=== PATIENT | female | born 1965 | race Caucasian/White ===

== ENCOUNTER 2017-08-29 11:23 | Outpatient (CLI) | payer BC ==
--- NOTE | 2017-08-29 12:04 | RAD ---
LEFT SHOULDER 3 VIEWS: Date: 08/29/17 HISTORY: Shoulder pain, rotator cuff impingement. FINDINGS: Acromion appears slightly laterally downsloping. There is minimal AC joint arthritic change. Glenohum eral joint space appears unremarkable. IMPRESSION: Essentially unremarkable left shoulder. POS: [facility]
--- NOTE | 2017-08-29 12:08 | RAD ---
CERVICAL SPINE AP AND LATERAL: Date: 08/29/17 HISTORY: Neck pain. COMPARISON: None. FINDINGS: No acute fracture. No malalignment. No listhesis. Open-mouth odontoid view is normal. Paraspinal soft tissues are unremarkable. IMPRESSION: Normal examination. POS: [facility]
== END 2017-08-29 11:24 | disposition home or self-care (01) ==
LOC: RAD 11:23
PROVIDERS: ATTEND Family Medicine
DX: M54.2 Cervicalgia (principal); M75.42 Impingement syndrome of left shoulder
CPT/HCPCS: 72040

== ENCOUNTER 2019-05-01 01:12 | Emergency (ER) | payer BC, SELFPAY ==
[2019-05-01] MEDS ORDERED: Lidocaine 1% (PF) 30 ML VIAL ONE (01:38)
[2019-05-01] MEDS ORDERED: Adacel (T-DAP) 0.5 ML SYRINGE ONE (02:19)
--- NOTE | 2019-05-01 07:59 | RAD ---
EXAM: Right small digit radiographs 3 views PROVIDED CLINICAL HISTORY: Pain FINDINGS: There is no evidence for fracture or other acute osseous abnormality. Alignment appears anatomic. Princess nt spaces appear preserved. IMPRESSION: No evidence for an acute osseous abnormality. If there is persistent clinical concern, conservative m anagement and follow-up imaging advised.
== END 2019-05-01 02:52 | disposition home or self-care (01) ==
LOC: ERS 01:12
DX: S61.216A Laceration without foreign body of right little finger without damage to nail, initial encounter (principal); T14.8XXA Other injury of unspecified body region, initial encounter; F17.210 Nicotine dependence, cigarettes, uncomplicated; W26.8XXA Contact with other sharp object(s), not elsewhere classified, initial encounter
CPT/HCPCS: 12002; 90471; 90715; J2001

== ENCOUNTER 2022-06-21 07:50 | Emergency (ER) | payer BC, SELFPAY ==
[2022-06-21 08:44] LABS: #Basophils 0.1 thou/uL (0.0-0.2); #Eosinphils 0.2 thou/uL (0.0-0.7); #Lymphocytes 1.4 thou/uL (1.20-3.40); #Monocytes 0.3 thou/uL (0.11-0.59); #Neutrophils 3.1 thou/uL (1.40-6.50); %Basophils 1.3 % (0.0-1.0); %Eosinophils 3.8 % (0.0-10.0); %Lymphocytes 27.9 % (21.0-51.0); %Monocytes 6.5 % (0.0-10.0); %Neutrophils 60.5 % (42.0-75.0); Hemoglobin 14.6 g/dL (12.0-16.0); Mean Corpuscular HGB CONC 32.2 g/dL (32.0-36.0); Mean Corpuscular Hemoglobin 32.1 pg (27.0-31.0); Mean Corpuscular Volume 99.4 fL (78.0-98.0); Mean Platelet Volume 8.1 fL (7.4-10.4); Platelet Count 267 thou/uL (130-400); RBC Distribution Width 11.9 % (11.5-14.5); Red Blood Cell (RBC) Count 4.55 mill/uL (4.20-5.40); White Blood Cell (WBC) Count 5.1 thou/uL (4.8-10.8)
[2022-06-21] MEDS ORDERED: cefTRIAXone\\ROCEPHIN 2 GM VIAL ONE (08:54)
[2022-06-21] MEDS ORDERED: Iopamidol-370 76% 500 ML 1 ML ONE (09:08)
[2022-06-21 09:18] LABS: Bilirubin Negative (Negative); Blood, Urine Negative (Negative); Clarity Clear (Clear); Glucose, Urine (Dipstick) Normal (Negative); Ketone, Urine Negative (Negative); Leukocyte Negative Leu/uL (Negative); Nitrite Negative (Negative); Protein, Urine (Dipstick) Negative (Neg-Trace); Specific Gravity, Urine 1.012 (1.002-1.036); Urobilinogen Normal mg/dL (Less than 2)
[2022-06-21 09:19] LABS: Pregnancy Test - Urine (BHCG) Negative (Negative); Pregu Control Background? CLEAR/WHITE (CLR/WHITE); Pregu Control Bar Appear? YES (CONTROL BAR); Specific Gravity 1.012 (1.002-1.036)
[2022-06-21 09:27] LABS: ALT (SGPT) 33 U/L (8-55); AST (SGOT) 29 U/L (5-34); Albumin 4.4 g/dL (3.5-5.0); Alkaline Phosphatase 64 U/L (40-110); Anion Gap 13 mmol/L (10-20); BUN (Urea Nitrogen) 14 mg/dL (9.8-20.1); Bilirubin, Total 0.6 mg/dL (0.2-1.2); Calc. Creatinine Clearance 0 mL/min (70-130); Calcium 9.5 mg/dL (7.8-10.44); Carbon Dioxide 26 mmol/L (22-29); Chloride 104 mmol/L (98-107); Estimated GFR 93; Globulin 3.1 g/dL (2.4-3.5); Glucose 113 mg/dL (70-105); Potassium 4.5 mmol/L (3.5-5.1); Protein, Total 7.5 g/dL (6.0-8.3); Sodium 138 mmol/L (136-145)
== END 2022-06-21 11:15 | disposition home or self-care (01) ==
LOC: ERS 07:50
DX: I10 Essential (primary) hypertension (principal); M54.50 Low back pain, unspecified; F17.210 Nicotine dependence, cigarettes, uncomplicated
CPT/HCPCS: 36415; 71275; 74174; 80053; 81003; 81025; 85025; 87086; 96374; J0696; Q9967

== ENCOUNTER 2022-08-29 05:53 | Observation (INO) | payer SELFPAY ==
[2022-08-29] MEDS ORDERED: Aspirin Chewable 81 MG TAB ONE ×3 (06:13→16:10)
[2022-08-29] MEDS ORDERED: LORazepam 2 MG/ML SYR.(CARPUJECT) ONE (06:38)
[2022-08-29 06:45] LABS: #Eosinphils 0.3 thou/uL (0.0-0.7); #Lymphocytes 1.6 thou/uL (1.20-3.40); #Monocytes 0.3 thou/uL (0.11-0.59); #Neutrophils 2.3 thou/uL (1.40-6.50); %Basophils 0.9 % (0.0-1.0); %Eosinophils 6.1 % (0.0-10.0); %Lymphocytes 35.9 % (21.0-51.0); %Monocytes 5.5 % (0.0-10.0); %Neutrophils 51.6 % (42.0-75.0); Hemoglobin 13.8 g/dL (12.0-16.0); Mean Corpuscular HGB CONC 33.4 g/dL (32.0-36.0); Mean Corpuscular Hemoglobin 33.1 pg (27.0-31.0); Mean Corpuscular Volume 99.1 fl (78.0-98.0); Mean Platelet Volume 7.9 fL (7.4-10.4); Platelet Count 263 10x3/uL (130-400); RBC Distribution Width 11.9 % (11.5-14.5); Red Blood Cell (RBC) Count 4.17 mill/uL (4.20-5.40); White Blood Cell (WBC) Count 4.5 10x3/uL (4.8-10.8)
[2022-08-29 07:05] LABS: ALT (SGPT) 24 U/L (8-55); AST (SGOT) 22 U/L (5-34); Albumin 4.5 g/dL (3.5-5.0); Alkaline Phosphatase 62 U/L (40-110); Anion Gap 14 mmol/L (10-20); BUN (Urea Nitrogen) 14 mg/dL (9.8-20.1); Bilirubin, Total 0.2 mg/dL (0.2-1.2); Calc. Creatinine Clearance 0 mL/min (70-130); Calcium 9.3 mg/dL (7.8-10.44); Carbon Dioxide 22 mmol/L (22-29); Chloride 107 mmol/L (98-107); Estimated GFR 103; Globulin 3.2 g/dL (2.4-3.5); Glucose 117 mg/dL (70-105); Potassium 3.9 mmol/L (3.5-5.1); Protein, Total 7.7 g/dL (6.0-8.3); Sodium 139 mmol/L (136-145)
[2022-08-29] MEDS ORDERED: ADENOSINE 60 MG/20 ML VIAL ONE (08:17)
[2022-08-29] MEDS ORDERED: Lorazepam 2 MG/ML VIAL IM PRN (09:09)
[2022-08-29] MEDS ORDERED: Zolpidem Tartrate 5 MG TAB PO PRN (09:09)
[2022-08-29] MEDS ORDERED: Acetaminophen 325 MG TAB PO PRN (09:09)
[2022-08-29] MEDS ORDERED: Guaifenesin DM 100-10/5 ML UDCUP PO PRN (09:09)
[2022-08-29] MEDS ORDERED: Ondansetron PF 4 MG/2 ML Vial IVP PRN (09:09)
[2022-08-29] MEDS ORDERED: Lorazepam 1 MG TAB PO PRN (09:09)
[2022-08-29] MEDS ORDERED: Ondansetron ODT 4 MG TAB PO PRN (09:09)
[2022-08-29] MEDS ORDERED: Electrolyte Replacement Protocol FS SCH (09:15)
[2022-08-29 09:35] LABS: #Eosinphils 0.2 thou/uL (0.0-0.7); #Lymphocytes 1.5 thou/uL (1.20-3.40); #Monocytes 0.3 thou/uL (0.11-0.59); #Neutrophils 3.6 thou/uL (1.40-6.50); %Basophils 0.6 % (0.0-1.0); %Eosinophils 4.2 % (0.0-10.0); %Lymphocytes 25.9 % (21.0-51.0); %Neutrophils 63.3 % (42.0-75.0); Hemoglobin 12.8 g/dL (12.0-16.0); Mean Corpuscular HGB CONC 32.1 g/dL (32.0-36.0); Mean Corpuscular Hemoglobin 32.1 pg (27.0-31.0); Mean Platelet Volume 8.2 fL (7.4-10.4); Platelet Count 255 10x3/uL (130-400); Red Blood Cell (RBC) Count 3.98 mill/uL (4.20-5.40); White Blood Cell (WBC) Count 5.6 10x3/uL (4.8-10.8)
[2022-08-29 09:51] LABS: Cardiac Risk 3.5 (Less than 4.5); Cholesterol 193 mg/dl (< 200 Desired); HDL Cholesterol 55 mg/dL (>60 Neg Risk); LDL Cholesterol, Calculated 122 mg/dL; Magnesium 1.8 mg/dL (1.6-2.6); Triglycerides 78 mg/dL (Less than 150); Troponin I Less than 0.010 ng/mL (< 0.028)
[2022-08-29 09:57] LABS: Phosphorus 3.2 mg/dL (2.3-4.7)
[2022-08-29] MEDS ORDERED: Lorazepam 1 MG TAB PO SCH (10:00)
[2022-08-29] MEDS ORDERED: Thiamine HCl 200 MG/2 ML VIAL SLOW IVP SCH (10:00)
[2022-08-29 11:27] VITALS: BMI 35.4
[2022-08-29 13:22] LABS: Syphilis Antibody Nonreactive (Nonreactive); Syphilis Antibody Index 0.04 S/CO (<1.00 Non-Reactive)
[2022-08-29] MEDS ORDERED: Magnesium 2 GM/50 ML(in water) 2 GM in Premix Bag 1 BAG IVPB SCH (13:45)
[2022-08-29 16:18] VITALS: BP 163/76; TEMP 98
[2022-08-29 16:32] LABS: Amphetamine Not Detected (NotDetected); Barbiturates Screen Not Detected (NotDetected); Benzodiazepine Screen Detected (NotDetected); Cocaine Metabolite Screen Not Detected (NotDetected); Methadone Not Detected (NotDetected); Methamphetamine Not Detected (NotDetected); Opiate Screen Not Detected (NotDetected); Oxycodone Screen Not Detected (NotDetected); Phencyclidine (PCP) Not Detected (NotDetected); THC/Cannabinoid Screen Not Detected (NotDetected); Tricyclic Screen Not Detected (NotDetected)
[2022-08-29 16:52] LABS: Troponin I Less than 0.010 ng/mL (< 0.028)
[2022-08-29] MEDS ORDERED: Atorvastatin Calcium 40 MG TAB PO SCH (21:00)
[2022-08-29] MEDS ORDERED: Metoprolol Tartrate 25 MG TAB PO SCH (21:00)
[2022-08-30] MEDS ORDERED: Aspirin Chewable 81 MG TAB PO SCH (09:00)
[2022-08-30] MEDS ORDERED: FLU VACC QS2022-23(6MOS UP)/PF 60 MCG/0.5 ML SYRINGE IM ONE (09:00)
[2022-08-30] MEDS ORDERED: Enoxaparin Sodium 40 MG/0.4 ML SYRINGE SC SCH (09:00)
[2022-08-30] MEDS ORDERED: Multivit, Therapeutic 1 TAB PO SCH (09:00)
[2022-08-30] MEDS ORDERED: Folic Acid 1 MG TAB PO SCH (09:00)
[2022-08-30] MEDS ORDERED: Lorazepam 1 MG TAB PO PRN (09:08)
[2022-08-31] MEDS ORDERED: Lorazepam 1 MG TAB PO PRN (09:08)
[2022-08-31] MEDS ORDERED: Lorazepam 0.5 MG TAB PO SCH (10:00)
[2022-09-01] MEDS ORDERED: Lorazepam 0.5 MG TAB PO PRN (09:08)
[2022-09-01] MEDS ORDERED: Thiamine 100 MG TAB PO SCH (10:00)
== END 2022-08-29 18:22 | disposition home or self-care (01) ==
LOC: ERS 05:53 → 2SW 09:03
PROVIDERS: ADMIT Internal Medicine; ATTEND Internal Medicine
DX: R00.2 Palpitations (principal); R07.2 Precordial pain; I10 Essential (primary) hypertension; F10.10 Alcohol abuse, uncomplicated; E78.5 Hyperlipidemia, unspecified; F17.210 Nicotine dependence, cigarettes, uncomplicated; Z79.899 Other long term (current) drug therapy; Z20.822 Contact with and (suspected) exposure to COVID-19
CPT/HCPCS: 36415; 71045; 78452; 80053; 80061; 80306; 83735; 84100; 84443; 84484; 85025; 85379; 86780; 93005; 93017; 96374; 96375; A9500; G0378; J0153; J3411; J3475; U0003; U0005

== ENCOUNTER 2024-04-02 18:27 | Emergency (ER) | payer OTHER, SELFPAY | END 2024-04-02 21:34 | disposition home or self-care (01) | LOC: ERS 18:27 | DX: S80.12XA Contusion of left lower leg, initial encounter (principal); I10 Essential (primary) hypertension; F17.210 Nicotine dependence, cigarettes, uncomplicated; Z55.6 Problems related to health literacy; Z79.899 Other long term (current) drug therapy; Z79.82 Long term (current) use of aspirin; W22.8XXA Striking against or struck by other objects, initial encounter ==